=== PATIENT | female | born 1995 | race Asian ===

== ENCOUNTER 2024-07-06 07:03 | Outpatient (CLI) | payer MEDICAID, SELFPAY ==
[2024-07-06 07:41] LABS: Glucose Fasting Gestational 108 mg/dL (>/=95)
[2024-07-06 09:02] LABS: Glucose 1 Hour Gest 237 mg/dL (>/=180)
[2024-07-06 10:01] LABS: Glucose 2 Hour Gest 213 mg/dL (>/= 155)
[2024-07-06 11:10] LABS: Glucose 3 Hour Gest 142 mg/dL (>/=140)
== END 2024-07-06 07:04 | disposition home or self-care (01) ==
LOC: ANHLAB 07:06
PROVIDERS: Visit Provider Student in an Organized Health Care Education/Training Program
DX: Z34.90 Encounter for supervision of normal pregnancy, unspecified, unspecified trimester (principal)
CPT/HCPCS: 36415; 82951; 82952

== ENCOUNTER 2024-07-19 15:15 | Outpatient (CLI) | payer OTHER, SELFPAY ==
--- OUTSIDE RECORDS SUMMARY | 2024-07-19 15:38 | XMS_ITS | Clinical Summary ---
Author Organization [facility] Address [address] 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 This disclosure is being madepursuant to the Care Everywhere program and may not contain all information available regarding this patient. Last updated 17.[facility] Social History Tobacco Use Types Packs/Day Years Used Date Smoking Tobacco: Never Assessed Comments Unknown Sex and Gender Information Value Date Recorded Sex Assigned at Not on file Legal Sex Female 1:48 PM CDT Gender Identity Not on file Sexual Orientation Not on file Plan of Treatment Upcoming Encounters Date Type Department Care Team (Late st Contact Info) Description 08/01/2024 9:45 AM CDT Appointment [facility] [address] [place] [id number] 08/01/2024 11:15 AM CDT Appointment [facility] [address] [place] [phone] Health Maintenance Due Date Last Done Comments PAP SMEAR 1996 HIV SCREENING 10/17/2011 HEPATITIS C SCREENING 10/12/2014 DTAP/TDAP/TD VACCINES (1 - Tdap) 10/17/2015 HEPATITIS B VACCINE (1 of 3 - 19+ 3-dose series) 10/17/2015 COVID-19 VACCINE ( - 2023-2 5 season) 2023 03/04/2021, 02/11/2021 DEPRESSION SCREENING 03/21/2024 INFLUENZA VACCINE (Season Ended) 2024 ZOSTER VACCINE (1 of 2) 2046 HIB VACCINE Aged Out No longer eligi ble based on patient's age to complete this topic HPV VACCINE Aged Out No longer eligi ble based on patient's age to complete this topic MENINGOCOCCAL (Group B) VACCINE SHARED DECISION-MAKING Aged Out No longer eligible based on patient's age to complete this topic MENINGOCOCCAL GROUPS A/C/Y/W VACCINE Aged Out No longer eligible b ased on patient's age to complete this topic PNEUMOCOCCAL VACCINE Aged Out No long er eligible based on patient's age to complete this topic
[2024-07-21 03:48] LABS: Varicella IgG Antibody 5.41 S/CO
== END 2024-07-19 15:16 | disposition home or self-care (01) ==
LOC: ANHLAB 15:17
PROVIDERS: PCP Family Medicine; Visit Provider Student in an Organized Health Care Education/Training Program
DX: O24.419 Gestational diabetes mellitus in pregnancy, unspecified control (principal); Z3A.00 Weeks of gestation of pregnancy not specified
CPT/HCPCS: 36415; 83036; 86644; 86747; 86787

== ENCOUNTER 2024-08-25 13:27 | Outpatient (RCR) | payer OTHER, SELFPAY ==
[2024-08-07 13:53] VITALS: BP 105/55; PULSE 85
[2024-08-11 13:26] VITALS: BP 95/57; PULSE 85
[2024-08-15 15:09] VITALS: BP 94/61; PULSE 87
[2024-08-21 15:30] VITALS: BP 94/57; PULSE 90
--- NOTE | ~2024-08-25 | US_ITS ---
EXAMINATION: US OB limited w BPP DATE: 08/03/2024 17:32 INDICATION: Maternal gestational diabetes during third trimester TECHNIQUE: Real-time pelvic ultrasound was performed. The interpreting radiologist was not present fo r the study. COMPARISON: None. FINDINGS: There is a single living fetus in vertex presentation. The placenta is posterior fundal. heart rate is 155 beats per minute (bpm). Amniotic fluid volume is subjectively normal with normal deepest vertical pocket measurement of 3.5 cm. Biophysical profile performed by the technologist: breathing (30 sec sustained breathing in 30 minutes): 2 out of 2 movement (3 gross body movements in 30 minutes): 2 out of 2 tone (one episode of jaohvzp-zunvkizlt-cihyjmw limb movement): 2 out of 2 Amniotic fluid pocket (2 cm): 2 out of 2 Total score: 8 out of 8 IMPRESSION: 1. Single living fetus in vertex presentation with heart rate of 155 bpm. 2. Biophysical profile 8 out of 8. Reviewed, dictated and finalized at location A.
--- NOTE | ~2024-08-25 | US_ITS ---
EXAMINATION: US OB follow up DATE: 08/15/2024 14:47 INDICATION: Estimated weight growth percentile as well as amniotic fluid index during third tri mester TECHNIQUE: Real-time ultrasound of the pelvis was performed. The interpreting radiologist was not pre sent for the study. COMPARISON: None. FINDINGS: There is a single living fetus in vertex presentation. The placenta is posterior and not low-lying. heart rate is 154 beats per minute (bpm). The amniotic fluid index is 10.5 cm, which is normal (5th%-95%: 7.9-24.9 cm at 35 weeks estimated gestational age). The following biometric data were obtained: BPD: 8.7 cm -> 34 weeks 6 days Head circumference: 31.5 cm -> 35 weeks 3 days Abdominal circumference: 29.6 cm -> 33 weeks 4 days Femur length: 6.5 cm -> 33 weeks 2 days These measurements are concordant. Head circumference to abdominal circumference ratio: 1.07 (normal range 0.94-1.11). Estimated weight: 2275 g (+/-) 341 g or 5 lbs. 0 oz. (+/-) 12 oz. IMPRESSION: 1. Single living fetus in vertex presentation with heart rate of 154 bpm. 2. Gestational age by ultrasound of 34 weeks 2 day(s) +/- 2 week(s) 3 day(s) with ultrasound estimate d date of delivery (MEDARDO) of 09/24/2024. Estimated weight is 13th percentile by Hadlock criteria w hen 09/17/2024 is used as the MEDARDO. Please correlate with clinical information or earlier ultrasounds f or most accurate MEDARDO. 3. Normal amniotic fluid index of 10.5 cm. Reviewed, dictated and finalized at location A. IMPRESSION: 1. Single living fetus in vertex presentation with heart rate of 154 bpm. 2. Gestational age by ultrasound of 34 weeks 2 day(s) +/- 2 week(s) 3 day(s) wi th ultrasound estimated date of delivery (MEDARDO) of 09/24/2024. Estimated tania ght is 13th percentile by Hadlock criteria when 09/17/2024 is used as the MEDARDO. P lease correlate with clinical information or earlier ultrasounds for most accur ate MEDARDO. 3. Normal amniotic fluid index of 10.5 cm.
--- NOTE | ~2024-08-25 | US_ITS ---
LIMITED OBSTETRIC ULTRASOUND/BIOPHYSICAL PROFILE Ordering provider: Ángel Frost MD History: . GDM . Comparison: None. FINDINGS: MATERNAL CERVIX: Not visualized. cm which is normal (normal is equal to or greater than 3.0 cm). Longitudinal lie. PRESENTATION: Vertex. PLACENTAL LOCATION: Posterior fundal. No previa. HEART RATE: 03/24/2021 bpm (normal is between 110 to 160 bpm). AMNIOTIC FLUID INDEX: 13. cm. 5th percentile is 8.1 cm. 95th percentile is 24.8 cm. Largest vertical pocket is 4.5 cm. normal (GEOFF between 5-25 cm in from 20-35 weeks gestation is considered normal). OTHER: Maternal ovaries not visualized. SCORE: breathing movements: 2 movements: 2 tone: 2 Amniotic fluid volume: 2 Total: 8 IMPRESSION: Normal biophysical profile. Normal amniotic fluid. Reviewed, dictated and finalized at location A.
--- NOTE | ~2024-08-25 | US_ITS ---
EXAMINATION: US OB BPP wo non-stress DATE: 08/21/2024 15:36 CDT INDICATION: GDM TECHNIQUE: Real-time transabdominal obstetric ultrasound. FINDINGS: 08/11/2024 There is a single living fetus in vertex presentation. The placenta is posterior without placenta pr evia. cardiac activity and movement is noted with a heart rate of 144 beats per minute. Biophysical profile: breathin of 2 movement: 2 of 2 tone: 2 of 2 Amniotic flud pocket: 2 of 2 Total score: 8 of 8 IMPRESSION: 1. Single living intrauterine in vertex presentation. 2: Total biophysical profile score of 8/8. Reviewed, dictated and finalized at location A.
[2024-08-25 13:27] VITALS: BP 100/58; PULSE 90
== END 2024-09-08 06:53 | disposition home or self-care (01) ==
LOC: ANHOBOP 13:27
PROVIDERS: PCP Family Medicine; Visit Provider Student in an Organized Health Care Education/Training Program
DX: O24.419 Gestational diabetes mellitus in pregnancy, unspecified control (principal); Z3A.35 35 weeks gestation of pregnancy
CPT/HCPCS: 59025; 76815; 76816; 76819

== ENCOUNTER 2024-08-27 04:13 | Inpatient (IN) | payer OTHER, SELFPAY ==
[2024-08-27] VITALS (148 sets, daily range): BP systolic 57–140; BP diastolic 25–109; PULSE 54–248; RESP 16; TEMP 36.1–36.6; O2SAT 78–100; BMI 28.5
--- OUTSIDE RECORDS SUMMARY | 2024-08-27 04:44 | XMS_ITS | Clinical Summary ---
Author Organization [facility] [employer] Address [address] 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 This disclosure is being madepursuant to the Care Everywhere program and may not contain all information available regarding this patient. Last updated [email or web address] Allergies No known active allergies Medications * Be aware that medications may not be up to date on this document. Alwaysverify current medications with the patient. Vit-DSS-Fe Fum-FA ( vitamin with iron) tablet Take 1 (one) tablet by mouth once daily Active insulin glargine (Lantus/Semgle e) 100 units/mL pen Inject 4 units in the morning and 4 units at bedtime. Take dosages approximately 12 hours apart. Increase dose as directed due to increasing insulin requirements during . Max total daily dose = 50u 15 mL 5 08/09/19 25 Active Glucagon (Baqsimi One Pack) 3 MG/DOSE POWD Harvard 1 Each into the nose as needed 1 Each 08/09/19 25 Active Insulin Pen Needle (Pen Miami) 32G X 4 MM MISCIndication s:Gestational diabetes mellitus (GDM) in third trimester, gestational diabetes method of control unspecified (HCC) Use 1 Each 5 times daily 100 Each 5 08/23/19 25 Active insulin lispro (HumaLOG;ADMel og) 100 UNIT/ML pen Inject 2 units with Lunch and dinner meals containing carbohydrates. Increase dose as directed due to increasing insulin requirements during . Max total daily dose 50 units. 15 mL 5 08/23/19 25 Active Insulin Pen Needle (Pen Miami) 32G X 4 MM MISCIndication s:Gestational diabetes mellitus (GDM) in third trimester, gestational diabetes method of control unspecified (HCC) Use 1 Each 2 times daily 100 Each 5 08/09/19 25 2024 Discontinued Encounters Date Type Department Care Team Description 08/17/2024 Telephone [facility] [address] [place] [phone] Ada Isabel RN Results (NIPT results.) 08/01/2024 9:50 AM CDT - 08/01/2024 11:59 PM CDT Hospital Encounter [facility] [address] [place] [address] [phone] Christian Morse MD Discharge Disposition: Home or Self Care 08/01/2024 9:45 AM CDT - 08/01/2024 9:49 AM CDT Hospital Encounter [facility] [address] [place] [address] [phone] Christian Morse MD Discharge Disposition: Home or Self Care from Last 3 Months Social History Tobacco Use Types Packs/Day Years Used Date Smoking Tobacco: Never Smokeless Tobacco: Never Tobacco Cessation:Counseling Given: Not Answered Alcohol Use Standard Drinks/Week Comments Not Currently 0 (1 standard drink = 0.6 oz pur e alcohol) Estimated Date of Delivery Comme nts Yes 09/17/2024 Based on Ultraso und Sex and Gender Information Value Date Recorded Sex Assigned at Not on file Legal Sex Female 1:48 PM CDT Gender Identity Not on file Sexual Orientation Not on file Last Filed Vital Signs Vital Sign Reading Time Taken Comments Blood Pressure 121/61 08/01/2024 11:12 AM CDT Pulse 107 08/01/2024 11:12 AM CDT Temperature - - Respiratory Rate - - Oxygen Saturation - - Inhaled Oxygen Concentration - - Weight - - Height - - Body Mass Index - - Plan of Treatment Health Maintenance Due Date Last Done Comments PAP SMEAR 1996 HIV SCREENING 10/17/2011 HEPATITIS C SCREENING 10/12/2014 DTAP/TDAP/TD VACCINES (1 - Tdap) 10/17/2015 HEPATITIS B VACCINE (1 of 3 - 19+ 3-dose series) 10/17/2015 COVID-19 VACCINE ( - 2023-2 5 season) 2023 03/04/2021, 02/11/2021 DEPRESSION SCREENING 03/21/2024 OB-ONE HOUR GLUCOSE 06/11/2024 OB-TDAP CURRENT 06/18/2024 11/10/2021 OB-RHOGAM INJECTION 06/25/2024 OB-GROUP B STREP SCREEN 08/13/2024 INFLUENZA VACCINE (Season Ended) 2024 ZOSTER VACCINE [...] on patient's age to complete this topic Respiratory Syncytial Virus (RSV) Vaccine Pt: or over 60 yrs (No Doses Required) Completed Procedures Procedure Name Priority Date/Time Associated Diagnosis Comments SONOGRAM - COMPLETE Routine 08/01/2024 1 0:55 AM CDT Gestational diabetes mellitus (GDM) in third trimester, gestational diabetes method of control unspecified (HCC) Encounter for anatomic survey (HCC) Encounter for ultrasound to assess growth (HCC) from Last 3 Months Results * SONOGRAM - COMPLETE (08/01/2024 10:55 AM CDT) Linked Results Indication ======== GDM History ====== OB History 1 Lab Tests Test Date Result Not Performed Maternal Assessment Physical Exam Height 160 cm, 5 ft 3 in. Weight 72 kg, 158 lb. Initial weight 84 kg, 185 lb. BMI 27.99 kg/m . Initial BMI 32.77 kg/m . Weight gain -12 kg, -27 lb Method ====== Transabdominal ultrasound. View: Sufficient ========= Moran . Number of fetuses: 1 Dating ====== Date Details Gest. age MEDARDO LMP 11/27/2023 35 w + 3 d 09/02/2024 Stated MEDARDO 33 w + 2 d 09/17/2024 Previous U/S 05/08/2024 GA, GA 21 w + 1 d 33 w + 2 d 09/17/2024 U/S 08/01/2024 based upon AC, BPD, Femur, HC 33 w + 2 d 09/17/2024 Assigned dating based on stated MEDARDO, selected on 08/01/2024 33 w + 2 d 09/17/2024 General Evaluation Cardiac activity present. FHR 146 bpm. Presentation: cephalic Placenta: Placental site: posterior Umbilical cord: Cord vessels: 3 vessel cord. Insertion site: suboptimal Amniotic fluid: Amount of AF: normal. MVP 5.3 cm. GEOFF 16.9 cm. Q1 4.8 cm, Q2 3.0 cm, Q3 3.9 cm, Q4 5.3 cm Biometry BPD 84.7 mm 34w 1d 69% Hadlock HC 306.0 mm 34w 1d 33% Hadlock Cerebellum tr 43.4 mm 42% [place] AC 280.6 mm 32w 1d 19% Hadlock Femur 63.5 mm 32w 6d 27% Hadlock Humerus 52.7 mm 30w 5d 6% Janette HC / AC 1.09 -/- Hadlock Weight Calculation: EFW 2,029 g 26% Hadlock EFW (lb,oz) 4 lb 8 oz EFW by Hadlock ([id number]-[id number]-FL) appropriate Growth Overview Exam date GA BPD (mm) HC (mm) AC (mm) FL (mm) HL (mm) EFW (g) 08/01/2024 33w 2d 84.7 69% 306 33% 280.6 19% 63.5 27% 52.7 6% 2028 26% Anatomy The following structures appear normal: Head / Neck Cranium. Lateral ventricles. Choroid plexus. Midline falx. Cavum septi pellucidi. Cerebellum. Cisterna magna. Thalami. Heart / Thorax 4-chamber view. RVOT view. LVOT view. 3-vessel view. Situs. Aortic arch view. Bicaval view. Interventricular septum. Great vessels. Right lung. Left lung. Diaphragm. Abdomen Stomach. Kidneys. Bladder. Bowel. Spine Cervical spine. Thoracic spine. Lumbar spine. Sacral spine. Extremities / Skeleton Arms. Legs. The following structures could not be adequately visualized: Face Lips. Profile. Nose. Orbits. Heart / Thorax 4-bjfrha-xepwfal view. Ductal arch view. Abdomen Cord insertion. Genitals. Extremities / Skeleton Hands. Feet. Biophysical Profile 2: breathing movements 2: Gross body movements 2: tone 2: Amniotic fluid volume 10/26 Biophysical profile score Maternal Structures Right Ovary Normal Left Ovary Not visualized Appearance: Adnexa appears normal Impression ========= * Moran IUP at 33 weeks of gestation by stated EDC * Referred to [facility] for obstetrical U/S & request for consult secondary to: Gestational diabetes mellitus (GDM) * Today's ultrasound (U/S) findings: Living moran intrauterine fetus growth is in the normal range Amniotic fluid volume appears normal Placenta is posterior & clear of the internal cervical os Comprehensive anatomic survey appears normal, but is incomplete Biophysical profile (BPP) is normal (10/26) COUNSELING & RECOMMENDATIONS (PLEASE SEE FULL CONSULT IN EPIC) * In my best medical opinion, I would advise: Please see today's separate note from our [facility] Bottle Machine Operator (will hold insulin for now) Follow-up with our [facility] Bottle Machine Operator to review CBGs & DM management in 1 week She requests cf-DNA be drawn today Follow-up assessment: She is currently having 1x-weekly testing with her OB Start 2x-weekly NST and 1x-weekly BPP next week if GDM not diet controlled Follow-up U/S for growth in 4 weeks Delivery planning (timing, mode, location): too early to determine at present Post-delivery try to make lifestyle changes (i.e. diet, exercise) towards a normal BMI Follow-up ======== Next week to review CBGs Coding ====== Procedures 23270: US Preg Uterus Detailed [id number]: Biophysical Profile [facility] Anatomical Region Laterality Modality Other 08/01/2024 10:5 5 AM CDT Ángel Frost MD [facility] ORDERABLES Edited Result - Final from Last 3 Months Insurance [facility]
[2024-08-27 05:04] LABS: Basophils Percent Auto 0.3 % (0.2-1.2); Eosinophils Absolute Auto 0.1 K/mm3 (0-0.3); Eosinophils Percent Auto 0.6 % (0-4.4); Hematocrit 41.6 % (37.0-47.0); Hemoglobin 13.4 g/dL (12.0-15.0); Immature Granulocyte Absolute 0.06 K/mm3 (0.00-0.031); Immature Granulocyte Percent A 0.6 % (0-0.5); Lymphocytes Absolute Auto 2.61 K/mm3 (0.9-3.2); Lymphocytes Percent Auto 25.1 % (18.3-44.2); Mean Corpuscular HGB Conc 32.2 g/dl (32-36); Mean Corpuscular Hemoglobin 29.8 pg (26-34); Mean Corpuscular Volume 92.7 fl (80-100); Mean Platelet Volume 12.8 fl (7.4-10.4); Monocytes Absolute Auto 0.8 K/mm3 (0.1-0.6); Monocytes Percent Auto 7.3 % (2.6-8.5); Neutrophils Absolute Auto 6.9 K/mm3 (1.3-6.7); Neutrophils Percent Auto 66.1 % (45.5-73.1); Platelet Count Result 162 k/mm3 (150-375); Red Blood Count 4.49 M/mm3 (4.2-5.4); Red Cell Distribution Width 12.9 % (11.5-14.5); White Blood Count 10.4 K/mm3 (4.5-10.0)
[2024-08-27] MEDS: AMPICILLIN 2 GM/NS 100 ML 2 GM/100 ML BAG IVPB (05:05)
--- NOTE | 2024-08-27 05:08 | LDADM ---
This patient, Lisa Campoverde, was admitted to Labor/Delivery/Recovery 106 on 08/27/24 at 04:13. Plans for labor, pain management and were discussed with patient. Patient/family oriented to hospital policies and general routines including ID bracelet, bed and alarms, visiting hours, pain management, procedures, bathroom and other care routines, personal items, smoking policy, room service/diet and guest tray routines, infant security routines, and visiting hours. Patient/Family are encouraged to report perceived risks to care and to ask questions if they do not understand what they are told or what they should do. See OBIX for further documentation.
[2024-08-27] MEDS: LACTATED RINGERS 1,000 ML 125 ML IV CONT ×2 (05:23→08:07)
[2024-08-27 05:47] LABS: Alanine Aminotransferase 68 U/L (6-35); Albumin Level 3.6 g/dL (3.5-5.1); Alkaline Phosphatase 198 U/L (38-126); Anion Gap 8 mmol/L (4-12); Aspartate Amino Transferase 47 U/L (14-36); Bilirubin,Total 0.4 mg/dL (0.2-1.3); Blood Urea Nitrogen 9 mg/dL (7-17); Carbon Dioxide 19 mmol/L (22-30); Chloride 109 mmol/L (98-107); Estimated CRCL calculation 97 ml/min; Estimated Glomerular Filt Rate > 60; Glucose 125 mg/dL (65-110); Potassium 3.8 mmol/L (3.4-5.0); Sodium 136 mmol/L (137-145); Total Protein 6.4 g/dL (6.3-8.2)
[2024-08-27] MEDS: OXYTOCIN 30 UNITS/NS 500 ML 30 UNITS/500 ML BAG 6 UNITS IV CONT (05:48)
[2024-08-27 06:04] LABS: HIV 1/2 Ab P24 Ag Result Negative (Negative)
[2024-08-27 06:16] LABS: Syphilis IgG/IgM Antibody Non-Reactive (Nonreactive)
[2024-08-27 06:19] LABS: Hepatitis B Surface Antigen Negative (Negative); Rubella IgG Antibody 84.2 IU/ML
--- NOTE | 2024-08-27 07:51 | P.HP_ITS ---
H&P: HPI History of Present Illness Date/Time: 08/27/24 07:51 Chief Complaint: premature rupture of membranes gestational diabetes on insulin Narrative: 28 yo at 35w4d who presents with rupture of membranes at 03:00. complicated by gestational diabetes managed on insulin. Patient was a late transfer of care at 28 weeks. Patient is dated by a 19 week ultrasound With MEDARDO of 09/27/2024. Review of Systems Cardiovascular: Cardiovascular: Denies chest pain, Denies leg edema, Denies p alpitations, Denies dyspnea and Denies dyspnea on exertion Respiratory: Respiratory: Denies cough, Denies dyspnea and Denies dyspnea on exertion Gastrointestinal: Gastrointestinal: Denies abdominal pain, Denies constipation, Denies diarrhea, Denies nausea and Denies vomiting Genitourinary: Genitourinary: Denies hematuria, Denies urinary frequency, Denies dysuria, Denies pelvic pain, Denies urinary incontinence and Denies vaginal discharge Neurologic: Reports system reviewed and no additional complaints, except as documented Psychiatric: Psychiatric: Reports no additional psychiatric complaints Endocrine: Endocrine: Denies palpitations PMFSH Past Medical History Medical History GDM (gestational diabetes mellitus), class A1 PCOS (polycystic ovarian syndrome) Family History Family History Mother Lupus Social History Social History Smoking status: Never smoker Second hand tobacco smoke exposure: No Alcohol intake: never Substance use: never Substance use type: does not use Do You Feel Safe in your Home?: Yes Lack of Transportation: No Lack of Food: Never True Current Housing: I Have Housing Concerned About Future Housing: No Difficulty Paying Gas/Electric Bills: No Difficulty Paying for Meds: No Currently Unemployed: No Education: Master's Degree or Higher Difficulty w/ Childcare or Family Care: No Living arrangements: with family Occupation/Education: occupation Gender identity (if verbalized by the patient): Female Sexual Orientation (if Verbalized by the Patient): Straight or Heterosexual Spiritual care concerns: No Meds Home Medications and Allergies Home Medications ?Medication ?Instructions ?Recorded ?Confirmed ?Type vits no.10-ferrous 1 tablet PO DAILY #90 tabs 08/14/24 08/27/24 Rx fumarate 65 mg iron-folic acid 1 mg tablet (Vitafol-OB) Allergies Allergy/AdvReac Type Severity Reaction Status Date / Time No Known Allergies Allergy Verified 08/21/24 17:03 Vital Signs Vital Signs - 24 hr 08/27/24 04:26 08/27/24 05:05 08/27/24 05:54 Temperature 97.7 F Pulse Rate 82 Blood Pressure 120/51 L Oxygen Delivery Room Air 08/27/24 06:00 08/27/24 06:15 08/27/24 06:30 Temperature Pulse Rate 80 83 85 Blood Pressure 110/55 L 106/61 96/57 L Oxygen Delivery 08/27/24 06:54 08/27/24 07:00 08/27/24 07:15 Temperature Pulse Rate 80 83 95 Blood Pressure 107/58 L 100/56 L 114/60 Oxygen Delivery 08/27/24 07:26 Temperature 97.5 F L Pulse Rate Blood Pressure Oxygen Delivery Exam Const: General: no acute distress Eyes: EOM: EOMs intact bilaterally Neck: Neck: supple Thyroid: thyroid normal Chest: Breast/axilla inspection: normal inspection of the breasts Breast/axilla palpation: normal palpation of the breasts, normal palpation of the axillae and no axillary lymphadenopathy Resp: Effort & Inspection: normal respiratory effort Auscultation: clear to auscultation bilaterally Cardio: Rate: regular rate Rhythm: regular rhythm GI: Inspection: non-distended and other (Gravid) GI Palp: Yes Soft to palpation, No Tenderness to palpation present (GI) and No Guarding due to palpation present (GI) Auscultation: normal bowel sounds : Speculum Exam - Vagina: No vaginal bleeding OB/external & speculum: external exam normal; No vaginal bleeding Skin: General skin exam: normal color and no rashes or lesions noted Neuro: Cognition (Neuro): normal cognition Speech: normal speech Extrem: General: normal to inspection Psych: Mental Status: mental status grossly normal Affect: normal affect H&P: Results Labs Labs: Short CBC 08/27/24 Range/Units 04:51 WBC 10.4 H (4.5-10.0) K/mm3 Hgb 13.4 (12.0-15.0) g/dL Hct 41.6 (37.0-47.0) % Plt Count 162 (150-375) k/mm3 BMP 08/27/24 04:51 Sodium 136 L Potassium 3.8 Chloride 109 H Carbon Dioxide 19 L BUN 9 Creatinine 0.72 Glucose 125 H Calcium 10.0 Liver Function 08/27/24 Range/Units 04:51 Total Bilirubin 0.4 (0.2-1.3) mg/dL AST 47 H (14-36) U/L ALT 68 H (6-35) U/L Alkaline Phosphatase 198 H (38-126) U/L Albumin 3.6 (3.5-5.1) g/dL Assessment and Plan Assessment and plan (1) Supervision of high risk , unspecified, third trimester: Code(s): O09.93 - Supervision of high risk , unspecified, third trimester Status: Acute Assessment and Plan: 28-year-old Late transfer of care at 28 weeks Patient dated by 19 week ultrasound New OB labs reviewed Rh positive GBS unknown (2) Gestational diabetes: Code(s): O24.419 - Gestational diabetes mellitus in , unspecified control Status: Acute Assessment and Plan: patient diagnosed with gestational diabetes Patient: Managed with MFM Patient has been compliant with testing Will monitor blood sugars during labor (3) premature rupture of membranes: Code(s): O42.919 - premature rupture of membranes, unspecified as to length of time between rupture and onset of labor, unspecified trimester Status: Acute Assessment and Plan: patient reports rupture of membrane at 3:00 a.m. GBS unknown Will administer prophylactic antibiotics Admit for delivery, will augment with Pitocin will monitor for signs and symptoms of chorio
[2024-08-27] MEDS: PHENYLEPHRINE 1,000 MCG/10 ML SYRINGE 100 MCG IV PUSH ×4 (08:30→11:50)
--- NOTE | 2024-08-27 08:31 | WPDANESEPPF ---
Anes - Initial Pre Proc Eval Date/Time: 08/27/24 08:31 Surgeon: Ángel Frost MD Pre Op Diagnosis: SROM Patient Data Age: 28 Gender: F Height: 1.6 m Weight: 73 kg Last Vital Signs Temp 36.4 C L 08/27/24 07:26 Pulse 84 08/27/24 08:27 BP 97/69 L 08/27/24 08:29 Pulse Ox 98 08/27/24 08:27 O2 Del Method Room Air 08/27/24 05:05 Allergies Allergy/AdvReac Type Severity Reaction Status Date / Time No Known Allergies Allergy Verified 08/21/24 17:03 Home Medications ?Medication ?Instructions ?Recorded ?Confirmed ?Type vits no.10-ferrous 1 tablet PO DAILY #90 tabs 08/14/24 08/27/24 Rx fumarate 65 mg iron-folic acid 1 mg tablet (Vitafol-OB) Laboratory Tests 08/27/24 04:51 WBC 10.4 H K/mm3 (4.5-10.0) RBC 4.49 M/mm3 (4.2-5.4) Hgb 13.4 g/dL (12.0-15.0) Hct 41.6 % (37.0-47.0) MCV 92.7 fl (80-100) MCH 29.8 pg (26-34) MCHC 32.2 g/dl (32-36) RDW 12.9 % (11.5-14.5) Plt Count 162 k/mm3 (150-375) MPV 12.8 H fl (7.4-10.4) Immature Gran % (Auto) 0.6 H % (0-0.5) Neut % (Auto) 66.1 % (45.5-73.1) Lymph % (Auto) 25.1 % (18.3-44.2) [place] % (Auto) 7.3 % (2.6-8.5) Eos % (Auto) 0.6 % (0-4.4) Baso % (Auto) 0.3 % (0.2-1.2) Lymph # (Auto) 2.61 K/mm3 (0.9-3.2) [place] # (Auto) 0.8 H K/mm3 (0.1-0.6) Eos # (Auto) 0.1 K/mm3 (0-0.3) Baso # (Auto) 0.0 K/mm3 (0.0-0.1) Abs Immat Gran (auto) 0.06 H K/mm3 (0.00-0.031) Absolute Neuts (auto) 6.9 H K/mm3 (1.3-6.7) Absolute Nucleated RBC 0.000 K/mm3 (0.0-0.012) Nucleated RBC % 0.0 % (0.0-0.2) Sodium 136 L mmol/L (137-145) Potassium 3.8 mmol/L (3.4-5.0) Chloride 109 H mmol/L (98-107) Carbon Dioxide 19 L mmol/L (22-30) Anion Gap 8 mmol/L (4-12) BUN 9 mg/dL (7-17) Creatinine 0.72 mg/dL (0.7-1.0) Estim Creat Clear Calc 97 ml/min Estimated GFR > 60 (59 - ) Glucose 125 H mg/dL (65-110) Calcium 10.0 mg/dL (8.4-10.2) Total Bilirubin 0.4 mg/dL (0.2-1.3) AST 47 H U/L (14-36) ALT 68 H U/L (6-35) Alkaline Phosphatase 198 H U/L (38-126) Total Protein 6.4 g/dL (6.3-8.2) Albumin 3.6 g/dL (3.5-5.1) Syphilis IgG/IgM Ab Non-reactive (Nonreactive) Hep Bs Antigen Negative (Negative) HIV 1&2 Ab/P24 Ag 4thGn Negative (Negative) Rubella IgG Antibody 84.2 IU/ML (10 - ) Blood Type A Positive Antibody Screen Positive Antibody Identification Anti-E Antigen Identification E Antigen - NEGATIVE TREVIN, IgG Interpret Not Performed TREVIN, Poly Interpret Negative TREVIN, Complement Interp Not Performed Patient hx anesthesia problems: none Family hx anesthesia problems: none Results Review: All pre-operative results and documents have been reviewed as part of the pre-operative evaluation. FORMERLY [facility] Past Medical History Medical History GDM (gestational diabetes mellitus), class A1 PCOS (polycystic ovarian syndrome) Family History Family History Mother Lupus Social History Social History Smoking status: Never smoker Second hand tobacco smoke exposure: No Alcohol intake: never Substance use: never Substance use type: does not use Do You Feel Safe in your Home?: Yes Lack of Transportation: No Lack of Food: Never True Current Housing: I Have Housing Concerned About Future Housing: No Difficulty Paying Gas/Electric Bills: No Difficulty Paying for Meds: No Currently Unemployed: No Education: Master's Degree or Higher Difficulty w/ Childcare or Family Care: No Living arrangements: with family Occupation/Education: occupation Gender identity (if verbalized by the patient): Female Sexual Orientation (if Verbalized by the Patient): Straight or Heterosexual Spiritual care concerns: No Anes - Eval Final PreProcedure Day of Procedure 08/27/24 08:31 Patient weight: overweight Heart: regular rate and rhythm Lungs: clear to auscultation Neurological: alert and oriented ASA classification: II Emergent: no Anesthetic plan: proceed Anesthesia type and monitoring: regional epidural and standard monitoring Results Review: All pre-operative results and documents have been reviewed as part of the pre-operative evaluation. Informed Consent: The patient's anesthetic plan and its attendant risks and benefits were discussed with the patient/family/POA. Questions were solicited and answers provided to the satisfaction of the patient/family/POA.
[2024-08-27] MEDS: ePHEDrine sulfate INJ 50 MG/ML AMPUL IV PUSH ×4 (08:59→09:56)
[2024-08-27] MEDS: ONDANSETRON INJ 4 MG/2 ML VIAL IV PUSH (09:00)
[2024-08-27] MEDS: AMPICILLIN 1 GM/NS 50 ML 1 GM/50 ML BAG IVPB (09:13)
[2024-08-27 09:25] LABS: Glucose Point of Care 116 mg/dl (65-105)
--- NOTE | 2024-08-27 12:44 | S_PTH ---
PATIENT: Lisa Campoverde LOC: [facility]2 U#:[id number] AGE/SX: 28/F ROOM: 280 RE08/27/[address]: Ángel Frost MD : 1995 BED: 00 DIS: 08/29/2024 SPEC #: [id number] RECD: 08/31/24 08:26 STATUS: PA REQ #: [id number] MIHAI: 08/27/24 12:[address]: Ángel Frost DEPT: [facility] Surgical RECD BY: Kim Leonardo ENTERED: 08/31/24 08:26 SP TYPE: Surgical OTHR DR: Laura Rowell MD UNKNOWN,DOCTOR Piotr Villela MD Tissues: A - Placenta Procedures: Hematoxylin and Eosin Stain Gross and Microscopic Level 5
--- NOTE | 2024-08-27 12:48 | PM.OBPRVD ---
OB - Vaginal Delivery Note Procedure Delivery date: 08/27/24 Events: Gestational Diabetes and Premature Rupture of Membranes Induction method: None Delivery augmentation: Pitocin Delivery monitor: External FHT and External Uterine Route of delivery: Episiotomy description: None Laceration Description: Perineal - 2nd Degree Delivery repair: vicryl Specimen: Yes (placenta) Quantitative Blood Loss (ml): 150 Anesthesia type: Epidural Disposition: Floor Complications: No immediate complications Narrative: Patient pushed for a spontaneous vaginal delivery. The fetus was delivered atraumatically and placed on the maternal abdomen. The cord was clamped and cut after 1 minute of life. The cord was double clamped and cut and a segment of cord was collected for cord gases. Cord blood was collected for blood type and Coomb's testing. The placenta delivered spontaneously and was noted to be intact. The perineum was inspected and a second degree perineal laceration was noted. The laceration was repaired with 3-0 vicryl in a running fashion. The uterus was firm and good hemostasis was noted. Baby Date of : 08/27/24 Time of : 12:36 Gestational Age by Date: 35 gender: Male presentation: vertex position: Right Occiput Anterior Placenta delivery description: Spontaneous Cord Vessel Description: 3 Vessels
[2024-08-27] MEDS: OXYTOCIN 30 UNITS/NS 500 ML 30 UNITS/500 ML BAG 125 UNITS IV CONT (13:03)
[2024-08-27 13:16] LABS: Glucose Point of Care 100 mg/dl (65-105)
--- NOTE | 2024-08-27 15:14 | OBPPTRN ---
Patient transferred to post room #280 via (wheelchair). Support person present. Oriented to unit, room, information board, rooming in, admission packet and security measures. Patient verbalizes understanding.
[2024-08-27] MEDS: IBUPROFEN 600 MG TABLET PO (15:51)
[2024-08-27] MEDS: POLYSACCHARIDE IRON COMPLEX 150 MG CAPSULE PO (15:51)
[2024-08-27] MEDS: DOCUSATE SODIUM 100 MG CAPSULE PO (15:51)
[2024-08-27] MEDS: ACETAMINOPHEN 325 MG TABLET 650 MG PO (15:51)
[2024-08-27] MEDS: WITCH HAZEL 40 PADS 1 PAD TOPICAL (16:47)
[2024-08-27] MEDS: BENZOCAINE 20% AER SPR (*SP) 56 GM CAN 1 SPRAY TOPICAL ×2 (16:47→20:22)
[2024-08-28 00:22] VITALS: BP 102/61; PULSE 80; RESP 16; TEMP 37; O2SAT 100
[2024-08-28] MEDS: ACETAMINOPHEN 325 MG TABLET 650 MG PO (03:55)
[2024-08-28 03:57] LABS: Hematocrit 36.8 % (37.0-47.0); Hemoglobin 12.2 g/dL (12.0-15.0)
[2024-08-28 04:14] VITALS: BP 90/57; PULSE 81; RESP 14; TEMP 36.4; O2SAT 100
--- NOTE | 2024-08-28 06:41 | P.PNOB_ITS ---
OB - PN: Subj Subjective Date/time seen: 08/28/24 06:41 Patient comments: no complaints, pain well controlled and tolerating diet feeding status: exclusively breast feeding Narrative: patient doing well this AM. No complaints. Pain is well controlled. She reports minimal bleeding. She is ambulating and voiding without difficulty. She is tolerating PO. She denies N/V, fever, chills. OB - PN: Obj Data Labs 08/28/24 03:42 08/27/24 04:51 Labs: Laboratory Results - last 24 hr 08/27/24 08/27/24 08/27/24 04:51 09:16 13:06 Hgb Hct POC Capillary Glucose 116 H 100 Blood Type A Positive Antibody Screen Positive Antibody Identification Anti-E Antigen Identification E Antigen - NEGATIVE TREVIN, IgG Interpret Not Performed TREVIN, Poly Interpret Negative TREVIN, Complement Interp Not Performed Enhanced Crossmatch See Detail 08/28/24 03:42 Hgb 12.2 Hct 36.8 L POC Capillary Glucose Blood Type Antibody Screen Antibody Identification Antigen Identification TREVIN, IgG Interpret TREVIN, Poly Interpret TREVIN, Complement Interp Enhanced Crossmatch OB - PN A/P Plan day: 1 Plan: routine care Comments: patient doing well H/H stable patient is not interested in infant circumcision continue routine care anticipate d/c home tomorrow Time Spent With Patient Time: Total time spent is greater than 50% in coordination of care (as documented) at patient's floor/unit and/or counseling patient: Time with patient: less than 15 minutes Review of Systems 2 Review of Systems: All systems reviewed & are unremarkable except as noted in HPI and below Exam 2 Const: General: comfortable and no acute distress Resp: Effort & Inspection: normal respiratory effort Cardio: Rate: regular rate GI: GI Palp: Yes Soft to palpation and No Tenderness to palpation present (GI) Auscultation: normal bowel sounds Other: fundus firm and below umbilicus. Psych: Affect: normal affect
--- NOTE | 2024-08-28 06:42 | P.DS_ITS ---
DS: Admitting Diagnosis Discharge Date 08/29/24 Admitting Diagnosis premature rupture of membranes gestational diabetes DS: Discharge Diagnosis Discharge Diagnosis (1) Normal vaginal delivery: Code(s): O80 - Encounter for full-term uncomplicated delivery Status: Acute OB - DS: Summary OB Procedures : None OB Procedures Intrapartum: Spontaneous Vag Delivery OB Procedures: : None Peripartum Data Laceration Description: Perineal - 2nd Degree Episiotomy description: None Status at Discharge Functional status at discharge: independent ambulation Overall status at discharge: patient is back to baseline Time Spent with Patient Time attestation: Total time spent providing and/or coordinating discharge services: Time spent: Less than 30 minutes Exam Const: General: comfortable and no acute distress Resp: Effort & Inspection: normal respiratory effort Auscultation: clear to auscultation bilaterally Cardio: Rate: regular rate GI: GI Palp: Yes Soft to palpation Auscultation: normal bowel sounds Other: Fundus firm below umbilicus Psych: Appearance: grossly normal Mental Status: mental status grossly normal Affect: normal affect DS: Data Data Completed and Pending Pending studies at discharge: Pending at discharge 08/27/24 12:44 Surgical [PTH] Routine Labs on day of discharge: Labs from last 24 hours 08/28/24 08/27/24 08/27/24 03:42 13:06 09:16 Hgb 12.2 Hct 36.8 L POC Capillary Glucose 100 116 H Blood Type Antibody Screen Antibody Identification Antigen Identification TREVIN, IgG Interpret TREVIN, Poly Interpret TREVIN, Complement Interp Enhanced Crossmatch 08/27/24 04:51 Hgb Hct POC Capillary Glucose Blood Type A Positive Antibody Screen Positive Antibody Identification Anti-E Antigen Identification E Antigen - NEGATIVE TREVIN, IgG Interpret Not Performed TREVIN, Poly Interpret Negative TREVIN, Complement Interp Not Performed Enhanced Crossmatch See Detail Discharge Plan Discharge Discharging Clinician: Ángel Frost Patient Disposition: Home Activity: as tolerated and pelvic rest Diet: regular Patient Instructions: Antibiotic Form, Vaginal Delivery (DC) Patient Language: Hong Konger Stand Alone Forms: General Discharge Information Follow-up/Referrals: Ángel Frost MD [Physician] - 4 Weeks Discharge Medications: New acetaminophen 500 mg tablet 500 mg PO Q6H PRN (Reason: pain) Qty: 30 0RF ibuprofen 600 mg tablet 600 mg PO Q6H PRN (Reason: pain) Qty: 30 0RF Continued Vitafol-OB 65-1 mg tablet 1 tablet PO DAILY Qty: 90 1RF Date of admission: 08/27/24 04:13 Primary Care Provider: UNKNOWN,DOCTOR Admitting Provider: Ángel Frost Attending physician on admission: Ángel Frost Condition: Stable
[2024-08-28] MEDS: MULTIVIT/MIN/PREN/FOL AC/IRON TABLET 1 TAB PO (07:57)
[2024-08-28] MEDS: IBUPROFEN 600 MG TABLET PO (07:57)
[2024-08-28] MEDS: DOCUSATE SODIUM 100 MG CAPSULE PO (07:57)
[2024-08-28 08:00] VITALS: BP 98/56; PULSE 80; RESP 18; TEMP 36.6; O2SAT 98
--- NOTE | 2024-08-28 12:08 | PC.NURSE ---
[id number]. Mother verbalizes she is able to independently latch infant with appropriate positioning and alignment. She denies any nipple discomfort and is responsively . Infant is currently meeting outcomes for weight, output,& jaundice, and feeding frequencies of 8-12 times in 24 hours. is still on blood sugar checks and is receiving supplementation with Neosure after feedings. Mother reports she has a history of PCOS, and was GDM in . Infant is 35 weeks but does well at the breast. Mother was encouraged to continue and supplementing at this time. Mother reports she does have a pump at home that she plans to use on occasion. Mother declines any additional assistance or education at this time. Mother is encouraged to call for assistance if her doesn?t latch, pain with latching, questions or concerns. Mother voiced understanding of information shared along with the mom/baby guide for an additional resource. Reported to the Primary RN.
[2024-08-28 20:03] VITALS: BP 103/60; PULSE 74; RESP 14; TEMP 36.6; O2SAT 99
[2024-08-29] MEDS: DOCUSATE SODIUM 100 MG CAPSULE PO ×2 (00:29→09:39)
[2024-08-29] MEDS: WITCH HAZEL 40 PADS 1 PAD TOPICAL (00:29)
[2024-08-29] MEDS: ACETAMINOPHEN 325 MG TABLET 650 MG PO (05:36)
[2024-08-29 08:45] VITALS: BP 87/54; PULSE 66; RESP 16; TEMP 36.4; O2SAT 99
[2024-08-29] MEDS: MULTIVIT/MIN/PREN/FOL AC/IRON TABLET 1 TAB PO (09:39)
[2024-08-29 10:05] VITALS: BP 94/53
--- NOTE | 2024-08-29 10:16 | PC.NURSE ---
Patient viewed the discharge video Mother & Baby Care, The First Two Weeks. Patient was given the opportunity and encouraged to ask questions. Patient verbalized understanding of information shared and has been given the mother/baby guide for home reference.
--- NOTE | 2024-08-29 12:05 | PC.NURSE ---
[id number]: Reviewed standard discharge information with patient including monitoring infant for required output, transition of stools, feeding 8-12 times every 24 hours, milk production, and follow up at [facility] and with link and link knitting machine operator in the first week of life. Mom was encouraged to continue to supplement with neosure after each session to continue to ensure infant is getting enough calories in the day. Discussed with parents they may talk to their link and link knitting machine operator about stopping the supplementation. Mom has a history of PCOS and GDM so she is at an increased risk for low milk supply, we reviewed this information as well at discharge. Parents are encouraged to take the feeding log and continue to track feedings and output for the first week . Offered outpatient resources with [facility] referral and Services at [facility]. Patient has the Mom/Baby Guide for further education and reference for common concerns, phone numbers, and guidance on when to call the doctor. A feeding plan was added to the infant?s discharge plan. Patient states that she has no further questions or concerns regarding .
[2024-08-30 11:41] VITALS: BP 101/54; PULSE 88; RESP 18; TEMP 36.8; O2SAT 99
== END 2024-08-29 14:00 | disposition home or self-care (01) | DRG 560 ==
LOC: ANHLDR 04:42 → ANHOB2 15:18
PROVIDERS: Admitting Provider Obstetrics & Gynecology; Visit Provider Student in an Organized Health Care Education/Training Program
DX: O60.14X0 Preterm labor third trimester with preterm delivery third trimester, not applicable or unspecified (principal); O24.424 Gestational diabetes mellitus in childbirth, insulin controlled; Z37.0 Single live birth; Z3A.35 35 weeks gestation of pregnancy; O70.1 Second degree perineal laceration during delivery
CPT/HCPCS: 36415; 80053; 82948; 85014; 85018; 85025; 86593; 86703; 86762; 86850; 86880; 86900; 86901; 86902; 86922; 87340; 88307; A9270; G0432; J0290; J2371; J2405; J2590; J2795; J7120